=== PATIENT | female | born 1995 | race Caucasian/White ===

== ENCOUNTER 2018-03-22 17:10 | Outpatient (CLI) | payer OTHER ==
[2018-03-22 17:50] LABS: ADD MAN DIFF? NO
[2018-03-22 17:57] LABS: BASOPHILS % 0.3 % (0.0-2.0); EOSINOPHILS # 0.2 10^3/ul (0.0-0.5); EOSINOPHILS % 1.7 % (0.0-7.0); HEMATOCRIT 31.7 % (37.0-47.0); HEMOGLOBIN 10.5 g/dl (12.0-16.0); LYMPHOCYTES # 1.5 10^3/ul (0.8-2.9); LYMPHOCYTES % 16.1 % (15.0-51.0); MEAN CORPUSCULAR HEMOGLOBIN 27.9 pg (29.0-33.0); MEAN CORPUSCULAR HGB CONC 33.1 g/dl (32.0-37.0); MEAN CORPUSCULAR VOLUME 84.1 fl (82.0-101.0); MEAN PLATELET VOLUME 12.8 fl (7.4-10.4); MONOCYTE # 0.7 10^3/ul (0.3-0.9); MONOCYTES % 7.8 % (0.0-11.0); NEUTROPHIL # 6.6 10^3/ul (1.6-7.5); NEUTROPHILS % 73.3 % (39.0-77.0); PLATELET COUNT 203 10^3/UL (140-415); RED BLOOD COUNT 3.77 10^6/ul (4.20-5.40); RED CELL DISTRIBUTION WIDTH 13.7 % (11.5-14.5)
[2018-03-22 18:13] LABS: ADD UMIC YES; UR ASCORBIC ACID NEGATIVE (NEGATIVE); UR BACTERIA FEW /HPF (NONE SEEN); UR BILIRUBIN (Dip) NEGATIVE (NEGATIVE); UR BLOOD (Dip) NEGATIVE (NEGATIVE); UR CLARITY CLEAR (CLEAR); UR COLOR STRAW (YELLOW); UR GLUCOSE (Dip) NEGATIVE (NEGATIVE); UR KETONES (Dip) NEGATIVE (NEGATIVE); UR LEUKOCYTE ESTERASE (Dip) 1+ Leu/ul (NEGATIVE); UR NITRITE (Dip) NEGATIVE (NEGATIVE); UR RBC 1 /HPF (0-5); UR SPECIFIC GRAVITY (Dip) 1.005 (1.003-1.030); UR SQUAMOUS EPITHELIAL CELL FEW /HPF (FEW); UR TOTAL PROTEIN (Dip) NEGATIVE (NEGATIVE); UR UROBILINOGEN (Dip) NEGATIVE (NEGATIVE); UR WBC 7 /HPF (0-5)
[2018-03-22 18:15] LABS: ALANINE AMINOTRANSFERASE 8 IU/L (13-69); ALBUMIN 3.5 g/dl (3.3-4.9); ALKALINE PHOSPHATASE 127 IU/L (42-121); ANION GAP 8 (5-13); ASPARTATE AMINO TRANSFERASE 19 IU/L (15-46); BILIRUBIN,INDIRECT 0.4 mg/dl (0-1.1); BILIRUBIN,TOTAL 0.4 mg/dl (0.2-1.3); BLOOD UREA NITROGEN 3 mg/dl (7-20); CALCIUM 8.8 mg/dl (8.4-10.2); CARBON DIOXIDE 26 mmol/L (21-31); CHLORIDE 104 mmol/L (97-110); CREATININE 0.44 mg/dl (0.44-1.00); Estimated GFR > 60 mL/min (>60); GLUCOSE 77 mg/dl (70-220); INR 0.95; POTASSIUM 3.2 mmol/L (3.5-5.1); PROTIME 12.8 Sec (11.9-14.9); SODIUM 138 mmol/L (135-144); URIC ACID 2.7 mg/dl (3.1-7.9)
[2018-03-22 18:16] LABS: PARTIAL THROMBOPLASTIN TIME 29.3 Sec (23.0-35.0)
== END 2018-03-22 18:30 | disposition home or self-care (01) ==
LOC: OBT 17:10 → L-D 17:12 → OBT 18:30
DX: O26.892 Other specified pregnancy related conditions, second trimester (principal); Z3A.27 27 weeks gestation of pregnancy; R42 Dizziness and giddiness; H53.8 Other visual disturbances
CPT/HCPCS: 76818; 80053; 81001; 84560; 85025; 85384; 85610; 85730

== ENCOUNTER 2018-06-09 14:35 | Inpatient (IN) | payer OTHER ==
[2018-06-09] MEDS: LACTATED RINGER'S 1,000 ML IV ×2 (16:55→22:53)
[2018-06-09] MEDS ORDERED: OXYTOCIN 30 UNITS/LR 500 ML IV ×4 (17:00→23:00)
[2018-06-09] MEDS ORDERED: MISOPROSTOL 200 MCG TAB PR ×2 (17:00→23:00)
[2018-06-09] MEDS ORDERED: CARBOPROST 250 MCG INJ IM ×2 (17:00→23:00)
[2018-06-09] MEDS ORDERED: METHYLERGONOVINE 0.2 MG INJ IM ×2 (17:00→23:00)
[2018-06-09 17:26] LABS: ADD MAN DIFF? NO
[2018-06-09 17:27] LABS: WHITE BLOOD COUNT 9.5 10^3/ul (4.8-10.8)
[2018-06-09 17:27] LABS: ABNORMAL IP MESSAGE 1; BASOPHILS % 0.4 % (0.0-2.0); EOSINOPHILS # 0.1 10^3/ul (0.0-0.5); HEMATOCRIT 34.9 % (37.0-47.0); HEMOGLOBIN 10.6 g/dl (12.0-16.0); LYMPHOCYTES # 1.8 10^3/ul (0.8-2.9); MEAN CORPUSCULAR HEMOGLOBIN 23.9 pg (29.0-33.0); MEAN CORPUSCULAR HGB CONC 30.4 g/dl (32.0-37.0); MEAN CORPUSCULAR VOLUME 78.8 fl (82.0-101.0); MONOCYTE # 0.7 10^3/ul (0.3-0.9); MONOCYTES % 7.3 % (0.0-11.0); NEUTROPHIL # 6.8 10^3/ul (1.6-7.5); NEUTROPHILS % 71.5 % (39.0-77.0); PLATELET COUNT 195 10^3/UL (140-415); RED BLOOD COUNT 4.43 10^6/ul (4.20-5.40)
[2018-06-09 17:36] LABS: POSITIVE DIFF @See below
[2018-06-09 17:42] LABS: PROTIME 12.3 Sec (11.9-14.9)
[2018-06-09 17:43] LABS: PARTIAL THROMBOPLASTIN TIME 27.1 Sec (23.0-35.0)
[2018-06-09] MEDS ORDERED: PHENYLephrine (100 MCG/ML) 5ML SYG (18:28)
[2018-06-09] MEDS ORDERED: DEXAMETHASONE 4 MG/ML 1 ML INJ (18:40)
[2018-06-09] MEDS ORDERED: ONDANSETRON 4 MG INJ (18:40)
[2018-06-09] MEDS ORDERED: morphine SULFATE/PF (10 MG/10 ML) INJ (19:30)
[2018-06-09] MEDS ORDERED: ZOLPIDEM 5 MG TAB PO (19:30)
[2018-06-09] MEDS ORDERED: ONDANSETRON 4 MG INJ IV (19:30)
[2018-06-09] MEDS ORDERED: HYDROmorphONE 0.5 MG/0.5 ML SYG IV ×2 (19:30)
[2018-06-09] MEDS ORDERED: NALOXONE (0.4 MG/ML) INJ IV (19:30)
[2018-06-09 21:39] LABS: HEPATITIS B SURFACE ANTIGEN NEGATIVE (NEGATIVE)
[2018-06-09] MEDS: CEFAZOLIN 2 GM/50 ML (PMX) 50 ML IVPB (22:17)
[2018-06-09] MEDS: OXYTOCIN 30 UNITS/LR 500 ML IV ×2 (22:21→23:32)
[2018-06-09] MEDS ORDERED: LANOLIN HPA 1 PKT TOP (23:00)
[2018-06-10] MEDS: DIPHENHYDRAMINE 50 MG INJ IV (00:55)
[2018-06-10 05:05] LABS: ADD MAN DIFF? NO
[2018-06-10 05:16] LABS: ABNORMAL IP MESSAGE 1; BASOPHILS % 0.1 % (0.0-2.0); HEMATOCRIT 29.8 % (37.0-47.0); HEMOGLOBIN 9.4 g/dl (12.0-16.0); LYMPHOCYTES # 1.1 10^3/ul (0.8-2.9); LYMPHOCYTES % 8.4 % (15.0-51.0); MEAN CORPUSCULAR HEMOGLOBIN 24.5 pg (29.0-33.0); MEAN CORPUSCULAR HGB CONC 31.5 g/dl (32.0-37.0); MEAN CORPUSCULAR VOLUME 77.8 fl (82.0-101.0); MEAN PLATELET VOLUME 13.8 fl (7.4-10.4); MONOCYTE # 0.7 10^3/ul (0.3-0.9); NEUTROPHIL # 11.5 10^3/ul (1.6-7.5); NEUTROPHILS % 85.9 % (39.0-77.0); PLATELET COUNT 187 10^3/UL (140-415); RED BLOOD COUNT 3.83 10^6/ul (4.20-5.40); RED CELL DISTRIBUTION WIDTH 15.9 % (11.5-14.5)
[2018-06-10 05:16] LABS: WHITE BLOOD COUNT 13.3 10^3/ul (4.8-10.8)
[2018-06-10 06:01] LABS: POSITIVE DIFF @See below
[2018-06-10] MEDS: SENNA/DOCUSATE NA (8.6MG/50MG) TAB PO ×2 (09:00→22:27)
[2018-06-10] MEDS: KETOROLAC 30 MG INJ IV (12:11)
[2018-06-10] MEDS: LACTATED RINGER'S 1,000 ML IV ×3 (12:14→23:30)
[2018-06-10 15:05] LABS: RAPID PLASMA REAGIN NONREACTIVE (NR)
[2018-06-10] MEDS ORDERED: OXYCODONE/ACETAMINOPHEN (5/325) TAB PO (18:24)
[2018-06-10] MEDS: OXYCODONE/ACETAMINOPHEN (5/325) TAB PO (19:14)
[2018-06-10] MEDS: IBUPROFEN 800 MG TAB PO (22:27)
[2018-06-11] MEDS: IBUPROFEN 800 MG TAB PO ×3 (05:43→22:06)
[2018-06-11] MEDS: LACTATED RINGER'S 1,000 ML IV ×3 (07:30→23:30)
[2018-06-11] MEDS: SENNA/DOCUSATE NA (8.6MG/50MG) TAB PO ×2 (09:24→22:06)
[2018-06-11] MEDS: INFLUENZA VIRUS VACCINE 0.5 ML (DISPENSING) IM* (14:30)
[2018-06-12] MEDS: IBUPROFEN 800 MG TAB PO ×2 (06:12→13:57)
[2018-06-12] MEDS: LACTATED RINGER'S 1,000 ML IV ×2 (07:30→15:30)
[2018-06-12] MEDS: SENNA/DOCUSATE NA (8.6MG/50MG) TAB PO (09:07)
[2018-06-12] MEDS: DIPHTH/TET/ACEL PERTUSS (ADULT) 0.5 ML VIAL IM* (11:02)
== END 2018-06-12 19:30 | disposition home health service (06) | DRG 788 ==
LOC: L-D 14:35 → PP1 06-10 17:00 → L-D 16:05 → MS1 22:23
PROVIDERS: Obstetrics & Gynecology
PROC: 10D00Z1 Extraction of Products of Conception, Low, Open Approach (ICD-10-PCS; principal; 2018-06-09 17:00)
PROC: 3E033VJ Introduction of Other Hormone into Peripheral Vein, Percutaneous Approach (ICD-10-PCS; 2018-06-09 17:00)
DX: O65.5 Obstructed labor due to abnormality of maternal pelvic organs (principal); O34.211 Maternal care for low transverse scar from previous cesarean delivery; Z3A.37 37 weeks gestation of pregnancy; Z37.0 Single live birth
CPT/HCPCS: 85025; 85610; 85730; 86592; 86850; 86900; 86901; 87340; 90686; 90715; 99464